=== PATIENT | female | born 1955 | race Caucasian/White ===

== ENCOUNTER 2017-11-06 21:31 | Emergency (ER) | payer OTHER ==
[~2017-11-06] VITALS: Ht 170.2 cm; Wt 80.7 kg
[2017-11-06] MEDS ORDERED: ONDANSETRON 4 MG/2 ML VIAL IV ONE (22:15)
[2017-11-06] MEDS ORDERED: MORPHINE SULFATE 2 MG/1 ML DISP.SYRIN IV ONE (22:15)
[2017-11-06] MEDS ORDERED: IV NORMAL SALINE 1000 ML BAG IV ONE (22:15)
--- NOTE | 2017-11-06 22:32 | NUR ---
Pt states she thinks she has diverticulitis. c/o lower and left side ABD pain, 8-9/10, and tenderness w/diarrhea x 2 days. Pt denies CP, SOB, dizziness, n/v, no other complaints, no distress noted.
[2017-11-06 22:34] LABS: BASOPHILS # (AUTO) 0.1 K/uL (0.0-8.0); BASOPHILS % (AUTO) 0.6 % (0.0-2.0); EOSINOPHILS # (AUTO) 0.2 K/uL (0.0-0.7); HEMATOCRIT 39.5 % (31.2-41.9); HEMOGLOBIN 13.3 g/dL (10.9-14.3); LYMPHOCYTES # (AUTO) 2.2 K/uL (20.0-40.0); LYMPHOCYTES % (AUTO) 26.4 % (20.5-51.5); MEAN CORPUSCULAR HEMOGLOBIN 29.3 uug (24.7-32.8); MEAN CORPUSCULAR HGB CONC 34 g/dL (32.3-35.6); MEAN CORPUSCULAR VOLUME 86.9 fL (75.5-95.3); MONOCYTES # (AUTO) 0.5 K/uL (2.0-10.0); MONOCYTES % (AUTO) 6.5 % (0.0-11.0); NEUTROPHILS # (AUTO) 5.4 K/uL (1.8-8.9); NEUTROPHILS % (AUTO) 64.5 % (38.5-71.5); PLATELET COUNT (AUTO) 289 K/uL (179-408); RED BLOOD CELL COUNT(AUTO) 4.54 MIL/uL (3.63-4.92); WHITE BLOOD COUNT (AUTO) 8.3 K/uL (3.8-11.8)
[2017-11-06 22:39] LABS: POTASSIUM 3.9 mmol/L (3.5-5.1)
[2017-11-06] MEDS ORDERED: ONDANSETRON 4 MG/2 ML VIAL ONE (22:43)
[2017-11-06] MEDS ORDERED: MORPHINE SULFATE 4 MG/1 ML DISP.SYRIN ONE (22:43)
[2017-11-06 22:45] LABS: BILIRUBIN,DIRECT 0.1 mg/dL (0.0-0.2); BILIRUBIN,TOTAL 0.3 mg/dL (0.2-1.0); TOTAL PROTEIN, SERUM 8.2 g/dL (6.4-8.2)
[2017-11-06 23:46] LABS: *BILIRUBIN,URIN NEGATIVE (NEGATIVE); *BLOOD, URINE NEGATIVE (NEGATIVE); *COLOR,URINE YELLOW (YELLOW); *KETONES,URINE NEGATIVE (NEGATIVE); *PROTEIN,URINE NEGATIVE (NEGATIVE); *UROBILINOGEN,URINE 0.2 E.U./dl (NORMAL); LEUKOCYTE ESTERASE ,URINE TRACE (NEGATIVE); NITRITE, URINE NEGATIVE (NEGATIVE); PH,URINE 5.5 (5.0-8.0); UGLUCOSE NEGATIVE (NEGATIVE)
[2017-11-07] LABS: *CLARITY,URINE HAZY (CLEAR); BACTERIA,URINE FEW /HPF (NONE SEEN); RBC,URINE NONE SEEN /HPF (0-3)
[2017-11-07] MEDS ORDERED: LEVOFLOXACIN 500 MG TABLET PO ONE
[2017-11-07] MEDS ORDERED: METRONIDAZOLE 500 MG TABLET PO ONE
[2017-11-07 00:01] LABS: SQUAMOUS EPITHELIAL CELL,UR MODERATE /HPF (NONE SEEN)
[2017-11-07] MEDS ORDERED: LEVOFLOXACIN 500 MG TABLET ONE (00:13)
[2017-11-07] MEDS ORDERED: METRONIDAZOLE 500 MG TABLET ONE (00:13)
--- NOTE | 2017-11-07 00:13 | NUR ---
Removed IV intact, site okay, bandaged. Gave pt RX and d/c instructions, verbalized understanding.
== END 2017-11-07 00:12 | disposition home or self-care (01) ==
LOC: ER 21:31
DX: K57.92 Diverticulitis of intestine, part unspecified, without perforation or abscess without bleeding (principal); E78.00 Pure hypercholesterolemia, unspecified
CPT/HCPCS: 36415; 83690; 85025; 93005; A4663; J2270; J2405; J7030

== ENCOUNTER 2017-11-13 18:31 | Inpatient (IN) | payer OTHER ==
[~2017-11-13] VITALS: Ht 170.2 cm; Wt 80.7 kg
[2017-11-13] MEDS ORDERED: MORPHINE SULFATE 2 MG/1 ML DISP.SYRIN IV ONE (20:15)
[2017-11-13] MEDS ORDERED: IV NORMAL SALINE 1000 ML BAG IV ONE (20:15)
[2017-11-13] MEDS ORDERED: ONDANSETRON 4 MG/2 ML VIAL IV ONE (20:15)
[2017-11-13] MEDS ORDERED: PIPERACILLIN SODIUM/TAZOBACTAM 3.375 G in IV DEXTROSE 5% 50 ML IV ONE (20:15)
[2017-11-13 20:30] LABS: BASOPHILS % (AUTO) 0.4 % (0.0-2.0); EOSINOPHILS # (AUTO) 0.1 K/uL (0.0-0.7); EOSINOPHILS % (AUTO) 1.2 % (0.0-7.0); HEMATOCRIT 36.4 % (31.2-41.9); HEMOGLOBIN 12.2 g/dL (10.9-14.3); LYMPHOCYTES # (AUTO) 1.6 K/uL (20.0-40.0); LYMPHOCYTES % (AUTO) 16.5 % (20.5-51.5); MEAN CORPUSCULAR HEMOGLOBIN 29.2 uug (24.7-32.8); MEAN CORPUSCULAR HGB CONC 33 g/dL (32.3-35.6); MEAN CORPUSCULAR VOLUME 87.3 fL (75.5-95.3); MONOCYTES # (AUTO) 0.8 K/uL (2.0-10.0); MONOCYTES % (AUTO) 8.2 % (0.0-11.0); NEUTROPHILS # (AUTO) 7.2 K/uL (1.8-8.9); NEUTROPHILS % (AUTO) 73.7 % (38.5-71.5); PLATELET COUNT (AUTO) 298 K/uL (179-408); RED BLOOD CELL COUNT(AUTO) 4.17 MIL/uL (3.63-4.92); WHITE BLOOD COUNT (AUTO) 9.7 K/uL (3.8-11.8)
[2017-11-13 20:39] LABS: BILIRUBIN,DIRECT 0.1 mg/dL (0.0-0.2); BILIRUBIN,TOTAL 0.2 mg/dL (0.2-1.0); POTASSIUM 4.1 mmol/L (3.5-5.1); TOTAL PROTEIN, SERUM 7.2 g/dL (6.4-8.2)
[2017-11-13] MEDS ORDERED: ONDANSETRON 4 MG/2 ML VIAL ONE (22:11)
[2017-11-13] MEDS ORDERED: MORPHINE SULFATE 4 MG/1 ML DISP.SYRIN ONE (22:11)
[2017-11-13] MEDS ORDERED: PIPERACILLIN/TAZOBACTAM/D5W 50 ML IV ONE (22:12)
[2017-11-13 22:41] LABS: *BILIRUBIN,URIN NEGATIVE (NEGATIVE); *BLOOD, URINE NEGATIVE (NEGATIVE); *CLARITY,URINE SLIGHTLY CLOUDY (CLEAR); *COLOR,URINE YELLOW (YELLOW); *KETONES,URINE NEGATIVE (NEGATIVE); *PROTEIN,URINE NEGATIVE (NEGATIVE); *UROBILINOGEN,URINE 0.2 E.U./dl (NORMAL); LEUKOCYTE ESTERASE ,URINE 1+ (NEGATIVE); NITRITE, URINE NEGATIVE (NEGATIVE); PH,URINE 6.5 (5.0-8.0); UGLUCOSE NEGATIVE (NEGATIVE)
[2017-11-13 22:54] LABS: BACTERIA,URINE FEW /HPF (NONE SEEN); RBC,URINE NONE SEEN /HPF (0-3); SQUAMOUS EPITHELIAL CELL,UR MODERATE /HPF (NONE SEEN)
[2017-11-14] MEDS ORDERED: ACETAMINOPHEN 325 MG TABLET PO PRN (01:45)
[2017-11-14] MEDS ORDERED: Z GUARD REMEDY PASTE 57 GM TUBE TOP PRN (01:45)
[2017-11-14] MEDS ORDERED: MAGNESIUM HYDROXIDE 30 ML LIQUID UDC PO PRN (01:45)
[2017-11-14] MEDS ORDERED: ONDANSETRON 4 MG/2 ML VIAL IV PRN (01:45)
[2017-11-14 03:40] VITALS: BP 137/70
[2017-11-14 04:00] VITALS: BP 125/64
[2017-11-14] MEDS ORDERED: PIPERACILLIN/TAZO 4.5 GM VIAL IV ONE (05:25)
[2017-11-14] MEDS: PIPERACILLIN SODIUM/TAZOBACTAM 4.5 G in IV DEXTROSE 5% 50 ML IV SCH ×3 (05:28→21:04)
[2017-11-14] MEDS: HYDROCODONE/APAP 5-325MG TABLET PO PRN (10:10)
[2017-11-14 11:50] VITALS: BP 145/83
[2017-11-14] MEDS ORDERED: SIMV40TA5 PO (13:46)
[2017-11-14 15:58] VITALS: BP 138/77
[2017-11-14 19:00] VITALS: BP 145/86
[2017-11-15 04:00] VITALS: BP 134/75
[2017-11-15] MEDS: PIPERACILLIN SODIUM/TAZOBACTAM 4.5 G in IV DEXTROSE 5% 50 ML IV SCH ×3 (06:15→21:06)
[2017-11-15 06:34] LABS: BASOPHILS % (AUTO) 0.7 % (0.0-2.0); EOSINOPHILS # (AUTO) 0.2 K/uL (0.0-0.7); EOSINOPHILS % (AUTO) 2.9 % (0.0-7.0); HEMATOCRIT 37.6 % (31.2-41.9); HEMOGLOBIN 12.4 g/dL (10.9-14.3); LYMPHOCYTES # (AUTO) 1.6 K/uL (20.0-40.0); LYMPHOCYTES % (AUTO) 27.3 % (20.5-51.5); MEAN CORPUSCULAR HEMOGLOBIN 28.8 uug (24.7-32.8); MEAN CORPUSCULAR HGB CONC 33 g/dL (32.3-35.6); MEAN CORPUSCULAR VOLUME 87.4 fL (75.5-95.3); MONOCYTES # (AUTO) 0.5 K/uL (2.0-10.0); MONOCYTES % (AUTO) 9.4 % (0.0-11.0); NEUTROPHILS # (AUTO) 3.5 K/uL (1.8-8.9); NEUTROPHILS % (AUTO) 59.7 % (38.5-71.5); PLATELET COUNT (AUTO) 309 K/uL (179-408); RED BLOOD CELL COUNT(AUTO) 4.31 MIL/uL (3.63-4.92); WHITE BLOOD COUNT (AUTO) 5.8 K/uL (3.8-11.8)
[2017-11-15 06:48] LABS: BILIRUBIN,TOTAL 0.4 mg/dL (0.2-1.0); CREATININE 0.8 mg/dL (0.6-1.3); PHOSPHOROUS 4.7 mg/dL (2.5-4.9); TOTAL PROTEIN, SERUM 6.7 g/dL (6.4-8.2)
[2017-11-15] MEDS: HYDROCODONE/APAP 5-325MG TABLET PO PRN ×2 (09:44→21:05)
[2017-11-15 11:39] VITALS: BP 134/68
[2017-11-15 16:00] VITALS: BP 133/68
[2017-11-15 19:00] VITALS: BP 135/85
[2017-11-15] MEDS ORDERED: SIMVASTATIN 40 MG TABLET PO SCH (21:00)
[2017-11-16 04:00] VITALS: BP 129/68
[2017-11-16] MEDS: PIPERACILLIN SODIUM/TAZOBACTAM 4.5 G in IV DEXTROSE 5% 50 ML IV SCH ×2 (05:41→15:10)
[2017-11-16] MEDS: HYDROCODONE/APAP 5-325MG TABLET PO PRN (10:15)
[2017-11-16 11:22] VITALS: BP 105/66
[2017-11-16] MEDS ORDERED: HYDR-3326 PO (13:55)
[2017-11-16] MEDS ORDERED: LEVO500T2 PO (13:55)
== END 2017-11-16 17:00 | disposition home or self-care (01) | DRG 244 ==
LOC: ER 18:32 → MED 11-14 02:17
PROVIDERS: ADMIT Internal Medicine; ATTEND Nurse Practitioner Acute Care
DX: K57.32 Diverticulitis of large intestine without perforation or abscess without bleeding (principal); N17.0 Acute kidney failure with tubular necrosis; K21.9 Gastro-esophageal reflux disease without esophagitis; K57.30 Diverticulosis of large intestine without perforation or abscess without bleeding; E78.5 Hyperlipidemia, unspecified; N39.0 Urinary tract infection, site not specified; E78.00 Pure hypercholesterolemia, unspecified
CPT/HCPCS: 36415; 71045; 83735; 84100; 85025; 93005; A4663; J2270; J2405; J2543; J7030; J7050; J7060

== ENCOUNTER 2017-11-23 11:01 | Emergency (ER) | payer OTHER ==
[~2017-11-23] VITALS: Ht 162.6 cm; Wt 63.5 kg
[~2017-11-23 11:01] MED LIST: HYDR-3326 PO; LEVO500T2 PO; SIMV40TA5 PO
[2017-11-23] MEDS ORDERED: HYDROCODONE/APAP 5-325MG TABLET PO ONE (11:45)
[2017-11-23] MEDS ORDERED: ONDANSETRON ODT 4 MG TAB.RAPDIS SL ONE (11:45)
[2017-11-23] MEDS ORDERED: HYDROCODONE/APAP 5-325MG TABLET ONE (12:07)
[2017-11-23] MEDS ORDERED: ONDANSETRON ODT 4 MG TAB.RAPDIS ONE (12:07)
[2017-11-23 12:12] LABS: BASOPHILS % (AUTO) 0.8 % (0.0-2.0); EOSINOPHILS # (AUTO) 0.1 K/uL (0.0-0.7); EOSINOPHILS % (AUTO) 1.4 % (0.0-7.0); HEMATOCRIT 38.4 % (31.2-41.9); HEMOGLOBIN 12.8 g/dL (10.9-14.3); LYMPHOCYTES # (AUTO) 1.1 K/uL (20.0-40.0); LYMPHOCYTES % (AUTO) 19.7 % (20.5-51.5); MEAN CORPUSCULAR HEMOGLOBIN 28.8 uug (24.7-32.8); MEAN CORPUSCULAR HGB CONC 33 g/dL (32.3-35.6); MEAN CORPUSCULAR VOLUME 86.1 fL (75.5-95.3); MONOCYTES # (AUTO) 0.6 K/uL (2.0-10.0); MONOCYTES % (AUTO) 10.3 % (0.0-11.0); NEUTROPHILS # (AUTO) 3.9 K/uL (1.8-8.9); NEUTROPHILS % (AUTO) 67.8 % (38.5-71.5); PLATELET COUNT (AUTO) 361 K/uL (179-408); POTASSIUM 3.8 mmol/L (3.5-5.1); RED BLOOD CELL COUNT(AUTO) 4.46 MIL/uL (3.63-4.92); WHITE BLOOD COUNT (AUTO) 5.7 K/uL (3.8-11.8)
[2017-11-23 12:17] LABS: BILIRUBIN,DIRECT 0.1 mg/dL (0.0-0.2); BILIRUBIN,TOTAL 0.3 mg/dL (0.2-1.0); TOTAL PROTEIN, SERUM 8.1 g/dL (6.4-8.2)
[2017-11-23 12:39] LABS: *BILIRUBIN,URIN NEGATIVE (NEGATIVE); *BLOOD, URINE NEGATIVE (NEGATIVE); *CLARITY,URINE HAZY (CLEAR); *COLOR,URINE YELLOW (YELLOW); *KETONES,URINE NEGATIVE (NEGATIVE); *PROTEIN,URINE TRACE (NEGATIVE); *UROBILINOGEN,URINE 0.2 E.U./dl (NORMAL); LEUKOCYTE ESTERASE ,URINE NEGATIVE (NEGATIVE); NITRITE, URINE NEGATIVE (NEGATIVE); PH,URINE 5.5 (5.0-8.0); UGLUCOSE NEGATIVE (NEGATIVE)
[2017-11-23 12:40] LABS: BACTERIA,URINE NONE SEEN /HPF (NONE SEEN); MUCUS,URINE FEW /LPF (0-FEW); RBC,URINE 0-3 /HPF (0-3); SQUAMOUS EPITHELIAL CELL,UR MANY /HPF (NONE SEEN); WBC,URINE 0-3 /HPF (0-3)
[2017-11-23] MEDS ORDERED: LEVOFLOXACIN 750MG/D5W 150 ML IV ONE ×2 (13:00→13:22)
[2017-11-23] MEDS ORDERED: IV NORMAL SALINE 1000 ML BAG IV ONE (13:00)
[2017-11-23] MEDS ORDERED: METRONIDAZOLE 500 MG/NS 100ML 100 ML IV ONE ×2 (13:00→13:22)
--- NOTE | 2017-11-23 14:06 | NUR ---
Patient is resting comfortably on gurney while using her personal electronic device, NAD, pending callback from patient's insurance/[facility].
--- NOTE | 2017-11-23 14:30 | NUR ---
Per ER registration staff- ambulance authorization #[id number] ([facility] or Post ambulance)
--- NOTE | 2017-11-23 15:10 | NUR ---
Patient is refusing transfer or admission, MD notified.
--- NOTE | 2017-11-23 15:13 | NUR ---
Patient does not wish to proceed with medical care recommended by Dr. Cruz. Patient given information related to possible complications, up to and including , which could occur as a result of leaving the hospital at this time. Patient verbalizes understanding of risks involved due to leaving against medical advice. Patient has signed AMA form.
== END 2017-11-23 15:13 | disposition left against medical advice (07) ==
LOC: ER 11:01
DX: K57.32 Diverticulitis of large intestine without perforation or abscess without bleeding (principal); K21.9 Gastro-esophageal reflux disease without esophagitis; E78.00 Pure hypercholesterolemia, unspecified; Z90.49 Acquired absence of other specified parts of digestive tract
CPT/HCPCS: 36415; 74176; 80048; 80076; 81001; 83690; 85025; 96365; 96368; 99285; A4663; J1956; J3490; J7030; Q0162

== ENCOUNTER 2018-01-01 16:16 | Inpatient (IN) | payer MEDICAID, OTHER ==
[~2018-01-01] VITALS: Ht 170.2 cm; Wt 74.8 kg
[2018-01-01] MEDS ORDERED: ONDANSETRON 4 MG/2 ML VIAL IV ONE ×2 (16:45→19:15)
[2018-01-01] MEDS ORDERED: MORPHINE SULFATE 2 MG/1 ML DISP.SYRIN IV ONE ×2 (16:45→19:15)
[2018-01-01] MEDS ORDERED: IV NORMAL SALINE 1000 ML BAG IV ONE (16:45)
[2018-01-01] MEDS ORDERED: ONDANSETRON 4 MG/2 ML VIAL ONE ×2 (17:08→19:17)
[2018-01-01] MEDS ORDERED: MORPHINE SULFATE 4 MG/1 ML DISP.SYRIN ONE ×2 (17:08→19:17)
[2018-01-01 17:29] LABS: BASOPHILS # (AUTO) 0.1 K/uL (0.0-8.0); BASOPHILS % (AUTO) 0.5 % (0.0-2.0); EOSINOPHILS % (AUTO) 0.1 % (0.0-7.0); HEMATOCRIT 35.9 % (31.2-41.9); HEMOGLOBIN 11.8 g/dL (10.9-14.3); LYMPHOCYTES # (AUTO) 1.1 K/uL (20.0-40.0); LYMPHOCYTES % (AUTO) 8.6 % (20.5-51.5); MEAN CORPUSCULAR HEMOGLOBIN 28.2 uug (24.7-32.8); MEAN CORPUSCULAR HGB CONC 33 g/dL (32.3-35.6); MEAN CORPUSCULAR VOLUME 85.7 fL (75.5-95.3); MONOCYTES # (AUTO) 1.5 K/uL (2.0-10.0); MONOCYTES % (AUTO) 12.5 % (0.0-11.0); NEUTROPHILS # (AUTO) 9.7 K/uL (1.8-8.9); NEUTROPHILS % (AUTO) 78.3 % (38.5-71.5); PLATELET COUNT (AUTO) 460 K/uL (179-408); RED BLOOD CELL COUNT(AUTO) 4.19 MIL/uL (3.63-4.92); WHITE BLOOD COUNT (AUTO) 12.3 K/uL (3.8-11.8)
[2018-01-01 17:37] LABS: CREATININE 0.9 mg/dL (0.6-1.3); POTASSIUM 4.7 mmol/L (3.5-5.1)
[2018-01-01 17:43] LABS: BILIRUBIN,DIRECT 0.2 mg/dL (0.0-0.2); BILIRUBIN,TOTAL 0.6 mg/dL (0.2-1.0); TOTAL PROTEIN, SERUM 7.8 g/dL (6.4-8.2)
[2018-01-01] MEDS ORDERED: LEVOFLOXACIN 750MG/D5W 150 ML IV ONE ×2 (18:45→18:47)
[2018-01-01] MEDS ORDERED: METRONIDAZOLE 500 MG/NS 100ML 100 ML IV ONE ×2 (18:45→18:47)
--- NOTE | 2018-01-01 20:25 | NUR ---
Pt. admitted to M/S , under care of Dr. MOFFETT Belongs List completed. REPORT GIVEN TO NIKUNJ COY. ENDORSED THAT IV ANTIBIOTIC IS INFUSING AT THIS TIME.
--- NOTE | 2018-01-01 20:30 | NUR ---
Received pt to M/S floor. Will continue to infuse IV antibiotic that was started in ER. Dr. Bolaños on the floor, will request orders from him. Assisted pt to bathroom as needed. Oriented pt to the unit and use of call light. Continues to complain of abdominal pain 05/22.
[2018-01-01 20:40] VITALS: BP 139/71
[2018-01-01] MEDS ORDERED: ZOLPIDEM 5 MG TABLET PO PRN (20:45)
[2018-01-01] MEDS ORDERED: ACETAMINOPHEN 325 MG TABLET PO PRN (20:45)
[2018-01-01] MEDS ORDERED: MAGNESIUM HYDROXIDE 30 ML LIQUID UDC PO PRN (20:45)
[2018-01-01] MEDS ORDERED: Z GUARD REMEDY PASTE 57 GM TUBE TOP PRN (20:45)
[2018-01-01] MEDS: IV D5 1/2 NS 1000 ML 1,000 ML IV PRN (21:19)
[2018-01-01] MEDS: MORPHINE SULFATE 4 MG/1 ML DISP.SYRIN IV PRN (21:56)
[2018-01-01] MEDS ORDERED: PIPERACILLIN/TAZO 4.5 GM VIAL IV ONE (23:14)
[2018-01-01] MEDS: PIPERACILLIN SODIUM/TAZOBACTAM 4.5 G in IV DEXTROSE 5% 50 ML IV SCH (23:22)
[2018-01-01] MEDS: HYDROCODONE/APAP 5-325MG TABLET PO PRN (23:36)
[2018-01-01] MEDS: ONDANSETRON 4 MG/2 ML VIAL IV PRN (23:37)
[2018-01-02 04:00] VITALS: BP 123/67
[2018-01-02] MEDS: MORPHINE SULFATE 4 MG/1 ML DISP.SYRIN IV PRN ×3 (04:47→12:13)
[2018-01-02] MEDS ORDERED: PIPERACILLIN/TAZO 4.5 GM VIAL IV ONE (05:01)
[2018-01-02] MEDS: PIPERACILLIN SODIUM/TAZOBACTAM 4.5 G in IV DEXTROSE 5% 50 ML IV SCH ×2 (05:40→13:48)
--- NOTE | 2018-01-02 05:51 | NUR ---
Pt slept intermittently last night. First dose of Morphine given was not effective, followed up with a PRN [place]. Pt then went to sleep, but very lightly. After second dose was given pt slept well. PRN Zofran was administered due to nausea, however no episode emesis noted. Continues NPO except medications. Tolerating IV fluids well.
[2018-01-02 06:47] LABS: BASOPHILS % (AUTO) 0.2 % (0.0-2.0); EOSINOPHILS % (AUTO) 0.2 % (0.0-7.0); HEMATOCRIT 33.5 % (31.2-41.9); HEMOGLOBIN 10.9 g/dL (10.9-14.3); LYMPHOCYTES # (AUTO) 1.2 K/uL (20.0-40.0); LYMPHOCYTES % (AUTO) 9.8 % (20.5-51.5); MEAN CORPUSCULAR HGB CONC 32 g/dL (32.3-35.6); MEAN CORPUSCULAR VOLUME 86.5 fL (75.5-95.3); MONOCYTES # (AUTO) 1.5 K/uL (2.0-10.0); MONOCYTES % (AUTO) 12.4 % (0.0-11.0); NEUTROPHILS # (AUTO) 9.2 K/uL (1.8-8.9); NEUTROPHILS % (AUTO) 77.4 % (38.5-71.5); PLATELET COUNT (AUTO) 382 K/uL (179-408); RED BLOOD CELL COUNT(AUTO) 3.88 MIL/uL (3.63-4.92); WHITE BLOOD COUNT (AUTO) 11.9 K/uL (3.8-11.8)
[2018-01-02 06:59] LABS: BILIRUBIN,TOTAL 0.5 mg/dL (0.2-1.0); CREATININE 0.9 mg/dL (0.6-1.3); MAGNESIUM 1.7 mg/dL (1.8-2.4); PHOSPHOROUS 3.6 mg/dL (2.5-4.9); POTASSIUM 4.4 mmol/L (3.5-5.1); TOTAL PROTEIN, SERUM 7.1 g/dL (6.4-8.2)
[2018-01-02 07:14] LABS: THYROID STIMULATING HORMONE 0.5 mIU/mL (0.358-3.740)
--- NOTE | 2018-01-02 08:00 | NUR ---
Awake, alert, oriented x 4. Assisted to the bathroom. IV site infiltrated, removed. Restarted to left AC. IVF restarted. Complaining of abdominal pain and noted nausea and vomiting. Morphine and Zofran IV given.
[2018-01-02] MEDS: IV D5 1/2 NS 1000 ML 1,000 ML IV PRN (08:09)
[2018-01-02] MEDS: ONDANSETRON 4 MG/2 ML VIAL IV PRN (08:39)
[2018-01-02 11:50] VITALS: BP 107/57
[2018-01-02] MEDS ORDERED: MAGNESIUM OXIDE 400 MG TABLET PO ONE (14:15)
[2018-01-02] MEDS: HYDROCODONE/APAP 5-325MG TABLET PO PRN (14:18)
[2018-01-02 15:04] VITALS: BP 116/62
--- NOTE | 2018-01-02 17:11 | NUR ---
With discharge/transfer order to [facility], facilitated to [facility]. Report given to Zeynep. Saline lock to left AC intact and patent. Discharged per gurney/ambulance in fair condition, not in distress, afebrile
[2018-01-03] MEDS ORDERED: ALBUTEROL SULFATE 2.5 MG/3 ML NEBU ONE (10:09)
[2018-01-03] MEDS ORDERED: IPRATROPIUM BROMIDE 0.5 MG/2.5 ML NEBU ONE (10:10)
[2018-01-05] MEDS ORDERED: KETOROLAC TROMETHAMINE 30 MG INJ ONE (01:39)
== END 2018-01-02 17:25 | disposition short-term general hospital (02) | DRG 244 ==
LOC: ER 16:16 → MED 20:03
PROVIDERS: ADMIT Internal Medicine; ATTEND Internal Medicine
DX: K57.20 Diverticulitis of large intestine with perforation and abscess without bleeding (principal); E87.1 Hypo-osmolality and hyponatremia; K59.00 Constipation, unspecified; K21.9 Gastro-esophageal reflux disease without esophagitis; E78.00 Pure hypercholesterolemia, unspecified; E88.09 Other disorders of plasma-protein metabolism, not elsewhere classified; D72.829 Elevated white blood cell count, unspecified
CPT/HCPCS: 36415; 71045; 83605; 83735; 84100; 84443; 85025; 85730; A4663; J1956; J2270; J2405; J2543; J3490; J3590; J7030; J7060